=== PATIENT | male | born 1975 | race Caucasian/White ===

== ENCOUNTER 2018-10-11 18:13 | Emergency (ER) | payer SELFPAY ==
[~2018-10-11] VITALS: Ht 170.2 cm; Wt 81.4 kg
[2018-10-11 20:10] VITALS: BP 131/71
--- NOTE | 2018-10-11 21:08 | NUR ---
LENCHO RN: DC EDUCATION PROVIDED, PT DEMONSTRATES UNDERSTANDING. PT AMBULATED STEADILY TO DC WITH RN. PT DRESSED APPROPRIATELY FOR WEATHER. PT PROVIDED BUS PASS FOR SAFE TRANSPORT
== END 2018-10-11 21:11 | disposition home or self-care (01) ==
LOC: ED 21:00
DX: M25.561 Pain in right knee (principal); F10.129 Alcohol abuse with intoxication, unspecified; Z72.9 Problem related to lifestyle, unspecified; Z75.9 Unspecified problem related to medical facilities and other health care; Y90.9 Presence of alcohol in blood, level not specified
CPT/HCPCS: 99285